=== PATIENT | male | born 1980 | race Caucasian/White ===

== ENCOUNTER 2021-07-29 10:32 | Outpatient (CLI) | payer OTHER, SELFPAY ==
[2021-07-29 10:42] LABS: Hemoglobin 14.3 g/dL (14.0-18.0); Mean Corpuscular HGB Conc 33.3 g/dL (32.0-36.0); Mean Corpuscular Hemoglobin 31.2 pg (27.0-31.0); Mean Corpuscular Volume 93.7 fL (78.0-102.0); Platelet Count Result 273 K/mm3 (150-420); Red Blood Count 4.59 M/mm3 (4.70-6.10); Red Cell Distribution Width 12.2 % (11.6-14.4); White Blood Count 8.6 K/mm3 (4.8-10.8)
[2021-07-29 11:53] LABS: Alanine Aminotransferase 34 U/L (16-63); Alkaline Phosphatase 65 U/L (46-116); Anion Gap 12 mmol/L (8-16); Aspartate Amino Transferase 14 U/L (15-37); Bilirubin,Total 0.5 mg/dL (0.00-1.00); Blood Urea Nitrogen 22 mg/dL (7-18); Calcium 9.5 mg/dL (8.5-10.1); Carbon Dioxide 26 mmol/L (21-32); Chloride 103 mmol/L (98-108); Cholesterol 211 mg/dL (0-200); Estimated Glomerular Filt Rate > 60; Glucose 100 mg/dL (70-99); HDL Direct 43 mg/dL (40-60); LDL Cholesterol Calculated 139 mg/dL (<130); Osmolality Calculated 295 mOsm/kg (285-295); Potassium 4.4 mmol/L (3.5-5.1); Sodium 141 mmol/L (136-145); Thyroid Stimulating Hormone Reflex 1.06 u/IU/mL (0.36-3.74); Total Protein 7.2 g/dL (6.4-8.2); Triglycerides 144 mg/dL (0-150)
== END 2021-07-29 10:33 | disposition home or self-care (01) ==
LOC: CHSLAB 10:34
PROVIDERS: PCP Family Medicine; Visit Provider Family Medicine
DX: Z00.00 Encounter for general adult medical examination without abnormal findings (principal); E11.9 Type 2 diabetes mellitus without complications; I10 Essential (primary) hypertension
CPT/HCPCS: 36415; 80053; 80061; 84443; 85027

== ENCOUNTER 2024-07-18 00:22 | Day surgery (SDC) | payer OTHER, SELFPAY ==
--- NOTE | 2024-07-06 14:25 | PC.NURSE ---
Report to the Outpatient Waiting Room, entrance under the green pavilion located off [facility], at time _0630_ on date _[id number]_. Planned Procedure Time: _0830_.? Time changes happen often and if your time is changed the preop area will call you the afternoon before. - You and your visitor will be asked to self-screen and do not enter if you have any COVID symptoms. Please call surgeon if you need to reschedule. - A mask is optional within the hospital at this time. Patients may have clear liquids (water, carbonated beverages, clear teas, apple juice) until 3 hours prior to surgery with a maximum of 20 ounces. - No food from midnight until time of surgery and no smoking. This includes no chewing gum, candy or mints. Take only the following medications with a SIP of water on the morning of surgery: __None____ DO NOT STOP ANY OF YOUR OTHER PRESCRIPTION MEDICATIONS PRIOR TO SURGERY EXCEPT THE FOLLOWING Medications to discontinue per physician ____None Please no make-up, nail hungarian, hairspray, perfume, deodorant, or body powder the day of surgery.? No jewelry (including any body piercings) or valuables the day of surgery, leave them at home.? Please take a shower or bath the night before, or the morning of, surgery with an antibacterial soap.? Wear comfortable, loose fitting clothing.? . - Jewelry must be removed prior to entering the operating room.? Rings and piercings that are not removed may be cut off. - The hospital will not accept responsibility for valuables.? - Please leave all valuables, including medications, at home the day of surgery. If you are going home after surgery, a licensed bobtail driver must drive you home.? - NO public transportation without another adult if you receive anesthesia. - We recommend that an adult stay with you for 24 hours following discharge. - We also recommend that you do not drive, make important decision, drink alcoholic beverages, or take any drugs that were not prescribed by your health care provider for at least 24 hours after your discharge time. Follow any additional instructions given to you from your surgeon. Telephone instructions given to __Wolfgang__and asked if any additional questions and then verbalized understanding. Patient advised to call surgeon office or pre surgery nurse liaison [phone] if any additional questions.
[2024-07-18] VITALS (8 sets, daily range): BP systolic 109–140; BP diastolic 56–86; PULSE 54–69; RESP 10–20; TEMP 36.4–36.9; O2SAT 96–100
--- NOTE | 2024-07-18 06:40 | ECG_ITS ---
Test Date: 2024-07-18 07:42:02 Measurements Intervals [place] Rate: 60 P: 32 CA: 164 QRS: 61 QRSD: 95 T: 64 QT: 395 QTc: 398 Interpretive Statements SINUS RHYTHM No previous ECG available for comparison Electronically Signed On 07-18-2024 15:26:05 PAPER FINAL INSPECTOR by Alexsandra Srinivasan M.D.
--- NOTE | 2024-07-18 07:23 | WPDHPUPDATE1 ---
History and Physical Update Update Date/Time: 07/18/24 07:23 History and Physical has been reviewed, including an updated exam of the patient. There are NO changes in the patient's condition. Risks, benefits, and alternatives have been discussed and questions answered. Patient agrees to proceed with procedure.
--- NOTE | 2024-07-18 07:23 | PM.IMHP ---
H&P: HPI History of Present Illness Date/Time: 07/18/24 07:23 Chief Complaint: right inguinal hernia Narrative: 44 yo man presents for right inguinal hernia repair. He reports no changes since last seen in office. Review of Systems Review of Systems: All systems reviewed & are unremarkable except as noted in HPI and below Constitutional: Constitutional: Denies chills, Denies fever(s), Denies headache(s) and Denies weight loss Eyes: Eyes: Denies change in vision ENT: Denies dizziness, Denies headache(s), Denies neck mass and Denies throat swelling Cardiovascular: Cardiovascular: Denies chest pain, Denies lightheadedness and Denies dyspnea Respiratory: Respiratory: Denies cough, Denies dyspnea and Denies wheezing Gastrointestinal: Gastrointestinal: Denies abdominal pain, Denies change in bowel habits, Denies nausea and Denies vomiting Genitourinary: Genitourinary: Denies hematuria and Denies dysuria Musculoskeletal: Musculoskeletal: Reports as per HPI Integumentary/Breasts: Skin/Breast: Reports as per HPI Neurologic: Denies dizziness and Denies headache(s) Allergic/Immunologic: Allergic/Immunologic: Denies throat swelling and Denies wheezing [facility] Past Medical History Medical History (Updated 03/31/24 @ 09:24 by Lyn Guardado CMA) Asthma Hypertension Surgical History Surgical History History of right knee surgery Family History Family History Father , 2020 Bladder cancer Bone cancer Mother Skin cancer (melanoma) Social History Social History Smoking packs per day: 1 Smoking cigarettes per day: 20.0 Years smoked: 25 Smoking pack-years: 25.00 Smoking status: Current every day smoker Tobacco type: cigarettes Alcohol intake: current Drinks per week: 30 Living arrangements: with family Spiritual care concerns: No Meds Home Medications and Allergies Home Medications Medication Instructions Recorded Confirmed Type nicotine 21 mg/24 hr daily 1 patch transdermal DAILY #28 ea 01/28/22 07/06/24 Rx transdermal patch Allergies Allergy/AdvReac Type Severity Reaction Status Date / Time oxycodone AdvReac Intermediate Hallucinati Verified 07/06/24 14:14 ng Exam Const: General: no acute distress and alert Orientation/consciousness: patient oriented x3 HENMT: Head: normocephalic and atraumatic Ears: hearing grossly normal bilaterally Face/Nose/Sinus: Normal nares present Mouth: Yes Normal oral and palatal mucosa present Eyes: Periorbital: periorbital findings normal Sclera: sclerae normal EOM: EOMs intact bilaterally Neck: Neck: normal visual inspection, no lymphadenopathy and trachea midline Chest: Chest palpation & inspection: normal inspection of the chest Resp: Effort & Inspection: normal respiratory effort Auscultation: clear to auscultation bilaterally Cardio: Jugular venous distension: no JVD Rate: regular rate Rhythm: regular rhythm Heart sounds: S1 normal heart sound present and S2 normal heart sound present Peripheral pulses: Peripheral pulses 2+ throughout GI: Inspection: normal to inspection GI Palp: Yes Soft to palpation, No Tenderness to palpation present (GI), No Guarding due to palpation present (GI) and No Rebound tenderness present Percussion: Yes normal to percussion Auscultation: normal bowel sounds : General: Yes no CVA tenderness Scrotum: inguinal hernia on the right Back/Spine/Pelvis: Back: no CVA tenderness Neuro: General: patient oriented x3, no focal motor deficits and CN's II-XI intact bilaterally Cognition (Neuro): normal cognition Speech: normal speech Motor exam (neuro): 5/5 motor strength present throughout Extrem: General: capillary refill normal and no clubbing, cyanosis or edema Assessment and Plan Assessment and plan (1) Right inguinal hernia: Code(s): K40.90 - Unilateral inguinal hernia, without obstruction or gangrene, not specified as recurrent Status: Acute Assessment and Plan: I have recommended laparoscopic right inguinal hernia repair with mesh, da Aranza assisted. I have discussed the procedure, risks, benefits, and alternatives with the patient. All questions answered. No changes since last seen in office.
[2024-07-18] MEDS: LACTATED RINGERS 1,000 ML 30 ML IV CONT ×2 (07:45→09:32)
[2024-07-18] MEDS: KETOROLAC 15 MG/ML VIAL (*BKC) IV PUSH (07:45)
[2024-07-18] MEDS: ACETAMINOPHEN 500 MG TABLET 1000 MG PO (07:45)
--- NOTE | 2024-07-18 08:21 | P.PNAN_ITS ---
Anes - Initial Pre Proc Eval Procedure: Operation Date: 07/18/24 08:30 Proposed Procedures p Laparoscopic Right Inguinal Hernia Repair with Mesh, Davinci Assisted - Adama Chong DO Date/Time: 07/18/24 08:21 Surgeon: Adama Chong DO Pre Op Diagnosis: Right Inguinal Hernia Patient Data Age: 44 Gender: M Height: 1.92 m Weight: 107.3 kg Last Vital Signs Temp 98.5 F 07/18/24 07:45 Pulse 69 07/18/24 07:45 Resp 14 07/18/24 07:45 BP 140/86 07/18/24 07:45 Pulse Ox 100 07/18/24 07:45 O2 Del Method Room Air 07/18/24 07:45 Allergies Allergy/AdvReac Type Severity Reaction Status Date / Time oxycodone AdvReac Intermediate Hallucinati Verified 07/18/24 08:13 ng Home Medications Medication Instructions Recorded Confirmed Type nicotine 21 mg/24 hr daily 1 patch transdermal DAILY #28 ea 01/28/22 07/06/24 Rx transdermal patch Patient hx anesthesia problems: none Family hx anesthesia problems: none Results Review: All pre-operative results and documents have been reviewed as part of the pre- operative evaluation. [facility] Past Medical History Medical History Asthma Hypertension Surgical History Surgical History History of right knee surgery Family History Family History Father , 2020 Bladder cancer Bone cancer Mother Skin cancer (melanoma) Social History Social History Smoking packs per day: 1 Smoking cigarettes per day: 20.0 Years smoked: 25 Smoking pack-years: 25.00 Smoking status: Current every day smoker Tobacco type: cigarettes Alcohol intake: current Drinks per week: 30 Living arrangements: with family Spiritual care concerns: No Anes - Eval Final PreProcedure Day of Procedure 07/18/24 08:21 Patient weight: normal Heart: regular rate and rhythm Lungs: clear to auscultation Airway: Mallampati scale class II Neurological: alert and oriented Last oral intake: >/= 8 hours ASA classification: III Emergent: no Anesthetic plan: proceed Anesthesia type and monitoring: general ETT and standard monitoring Results Review: All pre-operative results and documents have been reviewed as part of the pre- operative evaluation. CHUCK on CPAP, smoker 1/2 ppd, smoked at 630 am. ETOH use, 6 beers/most days. Informed Consent: The patient's anesthetic plan and its attendant risks and benefits were discussed with the patient/family/POA. Questions were solicited and answers provided to the satisfaction of the patient/family/POA.
[2024-07-18] MEDS: ceFAZolin 2 GM/D5W 50 ML 2 GM/50 ML BAG IVPB (08:35)
[2024-07-18] MEDS: BUPIVACAINE/EPINEPHRINE 0.5% 50 ML VIAL 30 ML INFILTRATE (09:02)
--- NOTE | 2024-07-18 09:42 | W.PM.PROC2 ---
Procedure Note - Detailed Date of Procedure 07/18/24 Pre-op Diagnosis Right Inguinal Hernia Post-op Diagnosis Same (Indirect RIH) Procedure Performed Laparoscopic right inguinal hernia repair with mesh, da Aranza assisted Surgeon Adama Chong, DO Anesthesia General and Local (0.5% bupivacaine with epinephrine) Indications This is a 44-year-old man who presents with right groin pain and a bulge that he noticed about 6 months ago. He was having discomfort well lifting heavy objects at work. He has been wearing a hernia belt to help with the discomfort. He was found to have a reducible right inguinal hernia on physical exam. Discussions were made with the patient about treatment options and decision was made to proceed with robotic assisted laparoscopic right inguinal hernia repair with mesh. Findings Laparoscopic right inguinal hernia repair with mesh was performed. The patient was found to have an indirect right inguinal hernia. The hernia sac was reduced and there was also a cord lipoma going along with the cord contents. Cord lipoma was also reduced. There was no evidence of a left inguinal hernia. A robotic transabdominal preperitoneal approach was utilized for repair of the right inguinal hernia. Once a wide enough preperitoneal pocket was created and the hernia sac was reduced, I then placed a large right 3DMax mid mesh overlying the entire right myopectineal orifice. Description of Procedure Procedure as well as risks, benefits, and alternatives were discussed with the patient. Written consent was obtained and placed in chart prior to procedure. Patient was brought back to surgical suite. He was placed supine on operating table. Time-out was done to confirm patient and procedure. He was then intubated by Anesthesia Department. His abdomen was prepped and draped in sterile fashion using chlorhexidine prep. 0.5% bupivacaine with epinephrine was infiltrated at each location for incision. An 8 mm incision was made in the left lateral abdomen, and a 5 mm Optiview trocar was advanced through the abdominal layers under direct visualization. Once inside the abdominal cavity, carbon dioxide insufflation was used to create a pneumoperitoneum. A camera was inserted and the abdominal cavity was inspected. The patient was placed in slight Trendelenburg position. An 8 millimeter incision was made on the right lateral abdomen and an 8 millimeter trocar was inserted under direct visualization. Another 8 millimeter incision was made just superior to the umbilicus and an 8 millimeter trocar was inserted under direct visualization. The 5 mm port was then removed and this was replaced with another 8 mm robotic port. The robotic arms were brought up to the patient's bedside and secured to the ports. The camera and instruments were inserted. I then moved over to the robotic console and took control of the camera and instruments. After careful inspection of the abdominal cavity, I began scoring the peritoneum along the right lower quadrant using scissors with electrocautery. The preperitoneal plane was entered and this was carefully dissected caudally along the inferior epigastric vessels. Careful dissection with scissors with electrocautery and blunt dissection was used to continue this dissection. I dissected far enough laterally to allow for mesh placement, and also dissected medially to identify the pubic arch and Lamonte's ligament. The hernia sac was identified and carefully dissected posteriorly. The cord contents were also identified and the peritoneum was carefully dissected far enough posteriorly to allow for mesh placement. Once an adequate pocket was created, I then placed the mesh within the preperitoneal pocket and carefully unfolded it. The mesh was centered on the hernia defect with adequate overlap circumferentially. The inferior edge of the mesh was inspected to ensure that it was far enough away from the peritoneal edge. The mesh appeared in proper position overlying the entire myopectineal orifice. The mesh was secured using 3-0 Vicryl simple interrupted sutures in Lamonte's ligament, the superior medial edge, and superior lateral edge of the mesh. The peritoneum was then closed over the mesh using a 3-0 V-lock running absorbable suture. The robotic instruments were removed. The robotic arms were disengaged from the ports and moved away from the bedside. The patient was flattened out in bed, the ports were removed under direct visualization, and the pneumoperitoneum was released. The skin of the incisions was approximated using 4-0 Monocryl subcuticular suture, and Exofin glue was applied on top. The patient was awakened from anesthesia, extubated, and transferred to recovery. Implants Large right 3DMax mid mesh Estimated Blood Loss 10 Complications No immediate complications Condition Stable Disposition Same day [facility] Billing Surgery - Charge Forward: Surgery Billing
[2024-07-18] MEDS: fentaNYL CITRATE INJ (*CRX) 100 MCG/2 ML VIAL 25 MCG IV PUSH ×2 (10:19→10:21)
== END 2024-07-18 11:42 | disposition home or self-care (01) ==
PROVIDERS: Visit Provider Surgery
PROC: 8E0Y4CZ Robotic Assisted Procedure of Lower Extremity, Percutaneous Endoscopic Approach (ICD-10-PCS; CPT 49650; principal; 2024-07-18 08:30)
DX: K40.90 Unilateral inguinal hernia, without obstruction or gangrene, not specified as recurrent (principal); I10 Essential (primary) hypertension; J45.909 Unspecified asthma, uncomplicated; F17.210 Nicotine dependence, cigarettes, uncomplicated; Z98.890 Other specified postprocedural states; Z80.52 Family history of malignant neoplasm of bladder; Z80.8 Family history of malignant neoplasm of other organs or systems; Z84.0 Family history of diseases of the skin and subcutaneous tissue
CPT/HCPCS: 49650; S2900; 36415; 86850; 86900; 86901; 93005; A9270; C1781; J0690; J1100; J1885; J2003; J2250; J2270; J2405; J2704; J3010; J7120

== ENCOUNTER 2025-06-29 08:07 | Outpatient (CLI) | payer OTHER, SELFPAY ==
--- NOTE | ~2025-06-29 | MMUS_ITS ---
EXAMINATION: MM diagnostic linda RT w alexa, US breast RT limited HISTORY: Palpable right breast abnormality TECHNIQUE: Additional 3-D tomosynthesis images of the breasts were performed and synthetic 2-D images were generated. CAD analysis was submitted and interpreted. High resolution Limited right breast ultrasound was performed. COMPARISON: None BREAST PARENCHYMAL COMPOSITION: Not Dense: The breasts are almost entirely fatty. FINDINGS: MAMMOGRAPHIC FINDINGS: In the area palpable concern there is a mass in the lower inner quadrant overlying the pectoralis muscle. No suspicious calcifications. ULTRASOUND: Limited right breast ultrasound: In the area of palpable concern at 2:00, 10 cm from the nipple there is a heterogeneous oval mass measuring 6 x 5 x 6 mm without internal vascularity. There is subtle posterior acoustic enhancement. IMPRESSION: 1. Heterogeneous 6 mm right breast mass in the area palpable concern. 2. Ultrasound-guided right breast biopsy recommended. BI-RADS category 4, suspicious findings. Reviewed, dictated and finalized at location B. [facility] IMPRESSION: 1. Heterogeneous 6 mm right breast mass in the area palpable concern. 2. Ultrasound-guided right breast biopsy recommended. BI-RADS category 4, suspicious findings.
== END 2025-06-29 08:08 | disposition home or self-care (01) ==
LOC: MICIMG 08:08
DX: N63.12 Unspecified lump in the right breast, upper inner quadrant (principal)
CPT/HCPCS: 76642; 77061; 77065; G0279

== ENCOUNTER 2025-07-18 07:52 | Outpatient (CLI) | payer OTHER, SELFPAY ==
--- NOTE | ~2025-07-18 | US_ITS ---
PROCEDURE(S): US breast right limited INDICATION(S): Palpable abnormality. The patient was scheduled for ultrasound- guided core biopsy. COMPARISON(S): None. TECHNIQUE: Grayscale and color Doppler imaging. FINDINGS: Sonography through the area of palpable concern at 2:00 again demonstrates the complex cystic mass which is in the skin layer. A tract is seen to the skin. IMPRESSION: The mass in question is a skin lesion, consistent with an epidermoid cyst. These should not be sampled secondary to the high propensity for inflammation/infection. The Patient has been informed that if he would like it removed, he can see dermatology or surgery. BI-RADS 2 - Benign. Reviewed, dictated and finalized at location C. MACHINE COLLECTOR IMPRESSION: The mass in question is a skin lesion, consistent with an epidermoid cyst. Thes e should not be sampled secondary to the high propensity for inflammation/infec tion. The Patient has been informed that if he would like it removed, he can se e dermatology or surgery. BI-RADS 2 - Benign.
--- OUTSIDE RECORDS SUMMARY | 2025-07-18 07:58 | XMS_ITS | Clinical Summary ---
Author Organization [facility] Address [address] [place] [address] Care Team Providers Care Sustainability Consultant Name Role Phone Unavailable Primary Care Provider Unavailabl e Social History Tobacco Use Types Packs/Day Years Used Date Smoking Tobacco: Never Assessed Sex and Gender Information Value Date Recorded Sex Assigned at Not on file Legal Sex Male 11:01 AM CDT Gender Identity Not on file Sexual Orientation Not on file Plan of Treatment Health Maintenance Due Date Last Done Comments DTAP/TDAP/TD VACCINES (1 - Tdap) 1998 HEPATITIS B VACCINES (1 of 3 - 19+ 3-dose series) 1998 COLORECTAL SCREENING 2024 Colorectal Cancer Screening 2024 FIT-DNA Q 3 years 2024 FIT/FOBT Q 1 year 2024 Flex Sig/CT Colonography Q 5 years 2024 INFLUENZA VACCINE (#1) 2025 HPV VACCINES Aged Out No longer eligi ble based on patient's age to complete this topic Insurance [facility] [employer]
--- OUTSIDE RECORDS SUMMARY | 2025-07-18 07:58 | XMS_ITS | Clinical Summary ---
Author Organization [facility] Address [address] [place] [address] Care Team Providers Care Diabetes Clinical Manager Name Role Phone Provider, No Pcp Primary Care Provider Unavailab le Source Comments [facility],non-owned Affiliates and Associated Physician Practices is amultiple site organization consisting of ambulatory clinics and hospital sitesin [place], [place], [place] and [place]. This disclosure is being madepursuant to the Care Everywhere program and may not contain all information available regarding this patient. Last updated 18.[facility] Allergies No known active allergies Medications * Be aware that medications may not be up to date on this document. Alwaysverify current medications with the patient. LISINOPRIL PO Take 10 mg by mouth once daily Active oxyCODONE, immediate release, (Roxicodone) 5 MG tabletIndication s:Other acute appendicitis Take 1 (one) tablet by mouth every 6 hours as needed 12 tablet 09/08/19 24 Active acetaminophen (Tylenol) 500 MG tabletIndication s:Other acute appendicitis Take 2 (two) tablets by mouth every 6 hours Maximum allowable Acetaminophen amount = 4 Grams (4000 mg) / 24 hours. 09/08/19 24 Active Active Problems Problem Noted Date Diagnosed Date Abdominal pain, generalized 09/07/2023 Family History Medical History Relation Name Comments Asthma Neg Hx CVA Neg Hx Cancer - Breast Neg Hx Cancer - Other Neg Hx Cancer - Skin, Melanoma Neg Hx Cancer - Skin, Non Melanoma Neg Hx Eczema Neg Hx Hemophilia Neg Hx Psoriasis Neg Hx Social History Tobacco Use Types Packs/Day Years Used Date Smoking Tobacco: Some Days Smokeless Tobacco: Former Tobacco Cessation:Ready to Q uit: Not Asked; Counseling Given: Not Answered Alcohol Use Standard Drinks/Week Comments Yes 0 (1 standard drink = 0.6 oz pur e alcohol) 4 times a week Sex and Gender Information Value Date Recorded Sex Assigned at Not on file Legal Sex Male 3:08 PM CDT Gender Identity Not on file Sexual Orientation Not on file Last Filed Vital Signs Vital Sign Reading Time Taken Comments Blood Pressure 108/72 09/22/2023 1:47 PM BIOMETRICS CONSULTANT Pulse 93 09/22/2023 1:47 PM BIOMETRICS CONSULTANT Temperature 36.3 C (97.3 F) 09/22/2023 1:47 PM BIOMETRICS CONSULTANT Respiratory Rate 16 09/08/2023 5:30 AM BIOMETRICS CONSULTANT Oxygen Saturation 83% 09/22/2023 1:47 PM BIOMETRICS CONSULTANT Inhaled Oxygen Concentration - - Weight 108.9 kg (240 lb) 09/22/2023 1:47 PM BIOMETRICS CONSULTANT Height 190.5 cm (6' 3) 09/22/2023 1:47 PM BIOMETRICS CONSULTANT Body Mass Index 30 09/22/2023 1:47 PM BIOMETRICS CONSULTANT Plan of Treatment Health Maintenance Due Date Last Done Comments COLOGUARD (AGES 45-75) - COL ON CA SCREENING 1979 COLON MONITORING 1979 COLONOSCOPY - COLON CA SCREENING 1979 CT COLONOGRAPHY - COLON CA SCREENING 1979 Colorectal Cancer Screening 1979 FIT - COLON CA SCREENING 1979 FLEX SIG - COLON CA SCREENING 1979 LIPID TESTING 1979 HIV SCREENING 1994 HEPATITIS C SCREENING 02/27/1997 DTAP/TDAP/TD VACCINES (1 - Tdap) 1998 HEPATITIS B VACCINE (1 of 3 - 19+ 3-dose series) 1998 PNEUMOCOCCAL VACCINE (1 of 2 - PCV) 1998 DEPRESSION SCREENING 08/16/2024 COVID-19 VACCINE (1 - 2024-2 6 season) 2025 INFLUENZA VACCINE (#1) 2025 SCREENING FOR DIABETES 09/08/2026 4, 09/07/2023 ZOSTER VACCINE (1 of 2) 2029 HIB VACCINE Aged Out No longer eligi ble based on patient's age to complete this topic HPV VACCINE Aged Out No longer eligi ble based on patient's age to complete this topic MENINGOCOCCAL (Group B) VACCINE SHARED DECISION-MAKING Aged Out No longer eligible based on patient's age to complete this topic MENINGOCOCCAL GROUPS A/C/Y/W VACCINE Aged Out No longer eligible b ased on patient's age to complete this topic Procedures Procedure Name Priority Date/Time Associated Diagnosis Comments BASIC METABOLIC PANEL (CALCIUM TOTAL) AM Draw 09/08/2023 3:13 AM BIOMETRICS CONSULTANT Other acute appendicitis from Last 3 Months or Most Recently Relevant to Health Maintenance Results * (ABNORMAL) BASIC METABOLIC PANEL (CALCIUM TOTAL) (09/08/2023 3:13 AM BIOMETRICS CONSULTANT) BUN 11 7 - 26 mg/dL 09/08/2023 3:50 AM [facility] Creatinine 0.82 0.71 - 1.16 mg/dL 09/08/2023 3:50 AM [facility] Sodium 138 136 - 145 mmol/L 09/08/2023 3:50 AM [facility] Potassium 3.9 3.5 - 4.5 mmol/L 09/08/2023 3:50 AM [facility] Chloride 109(H) 98 - 107 mmol/L 09/08/2023 3:50 AM [facility] CO2 21(L) 22 - 29 mmol/L 09/08/2023 3:50 AM [facility] Glucose 122(H) 70 - 115 mg/dL 09/08/2023 3:50 AM [facility] Calcium 8.8 8.4 - 10.2 mg/dL 09/08/2023 3:50 AM [facility] Anion Gap 8 6 - 16 09/08/2023 3:50 AM [facility] BUN/Creatinine Ratio 13 7 - 23 09/08/2023 3:50 AM [facility] Osmolality Calculated 287 275 - 295 mOsm/kg 09/08/2023 3:50 AM [facility] eGFR by CKD-EPI >90 >=90 mL/min/1.7 3 m2 09/08/2023 3:50 AM [facility] Blood BLOOD SPECIMEN / Unknown Lab Venipuncture / Unknown 09/08/2023 3:13 AM BIOMETRICS CONSULTANT 09/08/2023 3:22 AM [facility] Pool Wiggins MD LAB - CHEMISTRY ORDERABLES Fi nal Result [facility] [address] [place] [address], [facility] [phone] from Last 3 Months or Most Recently Relevant to Health Maintenance Insurance [facility] Advance Directives * Full Code (Latest Code Status on File) Date Activated Date Inactivated Comments 09/07/2023 3:08 PM 09/08/2023 9:54 AM Care Teams Diabetes Clinical Manager Relationship Specialty Start Date End Date Provider, No Pcp PCP - General 09/07/23
== END 2025-07-18 07:53 | disposition home or self-care (01) ==
DX: N64.9 Disorder of breast, unspecified (principal); N63.12 Unspecified lump in the right breast, upper inner quadrant; Z53.8 Procedure and treatment not carried out for other reasons
CPT/HCPCS: 19100; 76642